=== PATIENT | female | born 1935 | race Caucasian/White ===

== ENCOUNTER → 2018-01-30 | Outpatient (CLI) | payer OTHER ==
[~2018-01-30] MED LIST: BENTYL; Bactrim Ds Tab1 EACH PO; CALCIUM; CEPH500 PO; CRUTCH4 USE; CYAN1000I IM; DICL.1SO OD; ERGO400 PO; FLUO.05TC TOP; FURO20 PO; IBUP400 PO; LEVSOD88 PO; Lasix40 MG PO; METO5 PO; MULVITB PO; OXYACE5T PO; PHENA200 PO; Pyridium100 MG PO; SEPTRA DS; TRAM50 PO; TRET.1TC TOP; [UNRECOGNIZED DRUG - OTHER]
== END | disposition home or self-care (01) ==
LOC: LAB SHORT 09:45 → OLS 09:45 → LAB FUT 01-29 16:30
DX: R19.4 Change in bowel habit (principal)
CPT/HCPCS: 87015; 87045; 87046; 87177; 87209; 87899

== ENCOUNTER 2019-03-04 11:55 | Inpatient (IN) | payer OTHER ==
[~2019-03-04] VITALS: Ht 165.1 cm; Wt 68.0 kg
[~2019-03-04 11:55] MED LIST changes: -LEVSOD88 PO
[2019-03-04 15:46] LABS: BASOPHILS ABSOLUTE AUTO 0.03 K/mm3 (0.00-0.23); BASOPHILS PERCENT AUTO 0 % (0-2); EOSINOPHILS ABSOLUTE AUTO 0.06 K/mm3 (0.00-0.68); EOSINOPHILS PERCENT AUTO 1 % (0-6); Hematocrit 40.2 % (33.0-51.0); IMMATURE GRAN ABSOLUTE AUTO 0.07 K/mm3 (0.00-0.10); IMMATURE GRAN PERCENT AUTO 1 % (0-1); LYMPHOCYTES ABSOLUTE AUTO 1.12 K/mm3 (0.84-5.20); LYMPHOCYTES PERCENT AUTO 10 % (21-46); MONOCYTES ABSOLUTE AUTO 0.55 K/mm3 (0.16-1.47); MONOCYTES PERCENT AUTO 5 % (4-13); Mean Corpuscular HGB 30.7 pg (26.0-34.0); Mean Corpuscular HGB Conc 32.3 g/dL (31.5-36.5); Mean Corpuscular Volume 95 fL (80-100); Mean Platelet Volume 10.2 fL (9.1-12.4); NEUTROPHILS PERCENT AUTO 85 % (41-73); Platelet Count 199 K/mm3 (150-400); RDW Coefficient Variation 12.2 % (11.7-14.2); RDW Standard Deviation 42.4 fL (35.1-46.3); Red Blood Cell Count 4.23 M/mm3 (3.80-5.20); White Blood Cell Count 11.83 K/mm3 (4.00-11.30)
[2019-03-04 16:06] LABS: Alanine Aminotransfer (ALT/SGP 31 U/L (12-78); Albumin/Globulin Ratio 1.2 (0.8-1.8); Alk Phos 140 U/L (50-136); Anion Gap 5 mmol/L (6-16); Aspartate Aminotrans (AST/SGOT 32 U/L (12-37); Bilirubin, Total 0.7 mg/dL (0.1-1.0); Blood Urea Nitrogen 10 mg/dL (8-24); CO2, Blood 29 mmol/L (21-32); Chloride, Blood 108 mmol/L (98-108); Creatinine, Blood 0.67 mg/dL (0.40-1.00); Globulin, Blood 3.4 g/dL (2.2-4.0); Glomerular Filtration Rate >60 (60-); Glucose, Blood 102 mg/dL (70-99); Potassium, Blood 4.3 mmol/L (3.5-5.5); Sodium, Blood 142 mmol/L (136-145); Total Protein, Blood 7.4 g/dL (6.4-8.2)
[2019-03-04] MEDS ORDERED: THYROID PO (16:13)
[2019-03-04 16:26] LABS: Source, Urine Catheter
[2019-03-04 16:31] LABS: Bilirubin, Urine Neg (Neg); Blood, Urine Neg (Neg); Glucose Qualitative, Urine Neg (Neg); Ketones, Urine 2+ (Neg); Leukocyte Esterase, Urine 1+ (Neg); Nitrite, Urine Pos (Neg); Protein, Urine Neg (Neg); Urobilinogen, Urine NORM (Normal)
[2019-03-04 16:53] LABS: Appearance, Urine Clear (Clear); Color, Urine Pale Yellow (P-Yellow)
[2019-03-04 16:58] LABS: Bacteria Many /hpf; Red Blood Cells, Urine 0-2 /hpf (0-2); Squamous Epithelial Cells Not Seen /hpf (Few)
--- NOTE | 2019-03-04 19:44 | NUR ---
SHIFT SUMMARY PT A&OX4, VSS, MAUREEN PO, REPORT GIVEN TO SUSANNA PARIKH.
--- NOTE | 2019-03-05 07:30 | NUR ---
SHIFT SUMMARY PT RESTED WELL THIS AM. AAOX4/NPO. DISCOMFORT CONTROLLED WITH 50mcg FENTANYL X3. NO NAUSEA/EMESIS. PT REPORTING HX FALL X3 WEEKS AGO TO LEFT SIDE WITH RESIDUAL PAIN/SWELLING/REDNESS TO LEFT CALF/FOOT AREA. PCP WAS NOTIFIED OUTPATIENT BUT NO FOLLOW UP WAS PERFORMED PER PT. CLAIM REVIEW MEDICAL DIRECTOR HOSPITALIST NOTIFIED AND ORDERS TO FOLLOW THIS AM WITH ATTENDING PHYSICIAN WAS GIVEN. SALTER IN PLACE WITH MODERATE AMOUNTS OF YELLOW DRAINAGE OUT. PT RESTING AT THIS TIME, REPORT TO DAY SHIFT RN. CALL LIGHT WITHIN PT'S REACH, RODNEY.
--- NOTE | 2019-03-05 11:50 | NUR ---
PT TO DAY SURGERY VIA HOSPITAL BED
--- NOTE | 2019-03-05 12:26 | NUR ---
Kenneth Paws warming gown applied. History, Chart, Medications and Allergies reviewed before start of procedure.Lungs clear T/O to Auscultation. Music therapy session facilitated. I provided soft acoustic guitar music for augmentation of well being, relaxation, leisure or non-pharmaceutical pain or stress alleviation. Patient and or family unit responded favorably to the intervention showing signs of improvement in emotional orientation or bodily disposition.Patient confirms NPO status and agrees with scheduled surgery. ALL BELONINGS LEFT IN ROOM.
--- NOTE | 2019-03-05 12:27 | NUR ---
PT SENSITIVE TO PAIN. PLACED PAS AND LILA HOSE ON BED. DID NOT WIPE WITH CHLORAHEXIDINE. DRAINED SALTER PRIOR TO TRANSFER TO OR.
--- NOTE | 2019-03-05 13:05 | NUR ---
03/05/19 1305 Pascale Morris PT ENTERED OR WITH SALTER IN PLACE.
--- NOTE | 2019-03-05 16:29 | NUR ---
PT WAKES AND C/O FEELING "SICK" WHEN ASKED WHERE SHE STATES HER STOMACH MEDICATED WITH ZOFRAN ALSO C/O RIGHT EYE PAIN , BEING COLD, BEING THIRSTY REQUESTING WATER RIGHT EYES WAS FLUSHED WITH SALINE I DID NOT SEE AND ABNORMALITY NO REDNESS OR SWELLING NOTED. MOIST MOUTH SWAB, WARM BLANKETS FOR COMFORT LAYS QUIETLY WITH EYES CLOSED RESP E/U
--- NOTE | 2019-03-05 17:05 | NUR ---
POST OP PT ARRIVED POST OP, DROWSY. C/O R EYE PAIN BUT DOESN'T SHOW ANY SIGNS OF R HIP PAIN. SANDER CHAMBERS AND EPI WITH OPSITE. CDI.
--- NOTE | 2019-03-05 20:33 | NUR ---
PT ADMITTED FROM ED FOR A R PUBIC RAMUS FX R/T GROUND LEVEL FALL. PT REPORTS FALLING ONTO LEFT SIDE. HEMATOMA ON LEFT ELBOW. PT A&O X4. VSS AT THIS TIME. PT ORIENTED TO ROOM AND INSTRUCTED ON HOW TO USE CALL LIGHT.
[2019-03-06 05:21] LABS: BASOPHILS PERCENT AUTO 0 % (0-2); EOSINOPHILS PERCENT AUTO 0 % (0-6); Hematocrit 27.5 % (33.0-51.0); Hemoglobin 9.2 g/dL (11.5-16.0); IMMATURE GRAN ABSOLUTE AUTO 0.05 K/mm3 (0.00-0.10); IMMATURE GRAN PERCENT AUTO 1 % (0-1); LYMPHOCYTES ABSOLUTE AUTO 0.61 K/mm3 (0.84-5.20); LYMPHOCYTES PERCENT AUTO 6 % (21-46); MONOCYTES ABSOLUTE AUTO 0.58 K/mm3 (0.16-1.47); MONOCYTES PERCENT AUTO 6 % (4-13); Mean Corpuscular HGB 31.1 pg (26.0-34.0); Mean Corpuscular HGB Conc 33.5 g/dL (31.5-36.5); Mean Corpuscular Volume 93 fL (80-100); Mean Platelet Volume 9.4 fL (9.1-12.4); NEUTROPHILS ABSOLUTE AUTO 8.35 K/mm3 (1.96-9.15); NEUTROPHILS PERCENT AUTO 87 % (41-73); Platelet Count 171 K/mm3 (150-400); RDW Standard Deviation 40.7 fL (35.1-46.3); Red Blood Cell Count 2.96 M/mm3 (3.80-5.20); White Blood Cell Count 9.59 K/mm3 (4.00-11.30)
[2019-03-06 05:47] LABS: Anion Gap 5 mmol/L (6-16); Blood Urea Nitrogen 14 mg/dL (8-24); Bun/Creatinine Ratio 18.8 (12.0-20.0); CO2, Blood 26 mmol/L (21-32); Calcium, Blood 7.8 mg/dL (8.5-10.1); Chloride, Blood 108 mmol/L (98-108); Creatinine, Blood 0.74 mg/dL (0.40-1.00); Glomerular Filtration Rate >60 (60-); Glucose, Blood 186 mg/dL (70-99); Potassium, Blood 4.3 mmol/L (3.5-5.5); Sodium, Blood 139 mmol/L (136-145)
--- NOTE | 2019-03-06 08:32 | NUR ---
SHIFT SUMMARY: PT POD #1 FOR RT GERMAINE. AQUACEL AND POLAR PACK IN PLACE. PT DENYING PAIN T/O SHIFT. GIVEN SCHED TORADOL AND TYLENOL. PT GIVEN EYE PATCH FOR C/O OF RIGHT EYE PAIN. EYEPATCH INEFFECTIVE FOR PT. GIVEN PRN EYEDROPS WHICH PT REPORTS TO BE HELPING. PT NOT COMPLAINING OF EYE PAIN THIS MORNING. LLE REMAINS PAINFUL WHEN TOUCHED. 1+ EDEMA. PT HAS NOT BEEN OUT OF BED SINCE SURGERY. WILL WORK WITH PHYSICAL THERAPY TODAY.
--- NOTE | 2019-03-06 19:43 | NUR ---
SHIFT SUMMARY PT HAS DONE VERY WELL TODAY. SAT UP IN CHAIR FOR MOST OF DAY. TYLENOL ONLY FOR PAIN. EDEMA DECREASED SIGNIFICANTLY IN LLE.
[2019-03-07 04:12] LABS: Hematocrit 24.4 % (33.0-51.0); Mean Corpuscular HGB 30.3 pg (26.0-34.0); Mean Corpuscular HGB Conc 32.8 g/dL (31.5-36.5); Mean Corpuscular Volume 92 fL (80-100); Mean Platelet Volume 9.5 fL (9.1-12.4); Platelet Count 155 K/mm3 (150-400); RDW Coefficient Variation 12.4 % (11.7-14.2); RDW Standard Deviation 41.5 fL (35.1-46.3); Red Blood Cell Count 2.64 M/mm3 (3.80-5.20); White Blood Cell Count 7.24 K/mm3 (4.00-11.30)
[2019-03-07 04:31] LABS: Anion Gap 4 mmol/L (6-16); Blood Urea Nitrogen 16 mg/dL (8-24); Bun/Creatinine Ratio 22.5 (12.0-20.0); CO2, Blood 27 mmol/L (21-32); Calcium, Blood 7.7 mg/dL (8.5-10.1); Chloride, Blood 112 mmol/L (98-108); Creatinine, Blood 0.71 mg/dL (0.40-1.00); Glomerular Filtration Rate >60 (60-); Glucose, Blood 150 mg/dL (70-99); Sodium, Blood 143 mmol/L (136-145)
--- NOTE | 2019-03-07 06:35 | NUR ---
POD 2 S/P R HIP REPAIR. PT VSS T/O NIGHT. PAIN MGD W/TYLENOL W/REP RELIEF. DRESSINGS CDI. PT UP OOB W/FWW+ASSIST. PT MAUREEN REG PO, NO C/O N/V. SALTER CATH D/C THIS AM. PT USING CALL LIGHT FOR ASSISTANCE, WILL CONT TO MONITOR UNTIL REP GIVEN TO ONCOMING RN.
--- NOTE | 2019-03-07 14:54 | NUR ---
DISCHARGE REPORT CALLED TO [facility]. PAIN WELL CONTROLLED, WORKING WELL WITH THERAPY, DRSG INTACT, VOIDING, EATING AND DRINKING.
== END 2019-03-07 14:59 | DRG 470 ==
LOC: ER 11:55 → SURS 16:26 → EDBEDREQ 16:32 → SURS 17:19
PROVIDERS: Emergency Medicine; Orthopaedic Surgery; Physician Assistant; ADMIT Internal Medicine
PROC: 0SR902A Replacement of Right Hip Joint with Metal on Polyethylene Synthetic Substitute, Uncemented, Open Approach (ICD-10-PCS; principal; 2019-03-05 12:30)
DX: S72.001A Fracture of unspecified part of neck of right femur, initial encounter for closed fracture (principal); N39.0 Urinary tract infection, site not specified; D62 Acute posthemorrhagic anemia; W19.XXXA Unspecified fall, initial encounter; Y92.512 Supermarket, store or market as the place of occurrence of the external cause; E03.9 Hypothyroidism, unspecified; M81.0 Age-related osteoporosis without current pathological fracture; Z88.0 Allergy status to penicillin
CPT/HCPCS: 36415; 51702; 71045; 72170; 73502; 80048; 80053; 81001; 83735; 85025; 85027; 86850; 86900; 86901; 87077; 87086; 87186; 88305; 88311; 93005; 93010; 93971; 96374-59; 96375-59; 97110; 97116; 97162; 97166; 97530; 97535; 99285-25; C1713; C1776; J0171; J0690; J0735; J1100; J1170; J1885; J2370; J2405; J2704; J2710; J2795; J3010; J7120

== ENCOUNTER 2020-07-14 08:09 | Outpatient (CLI) | payer MEDICARE ==
[~2020-07-14 08:09] MED LIST changes: +FUROSEMIDE40 MG PO; +THYROID PO
[2020-07-15 14:36] LABS: Anion Gap 4 mmol/L (6-16); Blood Urea Nitrogen 15 mg/dL (8-24); Bun/Creatinine Ratio 21.4 (12.0-20.0); CO2, Blood 28 mmol/L (21-32); Calcium, Blood 9.4 mg/dL (8.5-10.1); Chloride, Blood 110 mmol/L (98-108); Glomerular Filtration Rate >60 (60-); Glucose, Blood 116 mg/dL (70-99); Potassium, Blood 4.6 mmol/L (3.5-5.5); Sodium, Blood 142 mmol/L (136-145)
== END 2020-07-15 | disposition home or self-care (01) ==
LOC: LAB UCHC 08:09
PROVIDERS: Family Medicine
DX: E03.9 Hypothyroidism, unspecified (principal); J81.1 Chronic pulmonary edema
CPT/HCPCS: 80048; 84443

== ENCOUNTER → 2022-04-06 | Outpatient (CLI) | payer MEDICARE ==
[2022-04-06 18:19] LABS: BASOPHILS ABSOLUTE AUTO 0.03 K/mm3 (0.00-0.23); BASOPHILS PERCENT AUTO 1 % (0-2); EOSINOPHILS ABSOLUTE AUTO 0.22 K/mm3 (0.00-0.68); EOSINOPHILS PERCENT AUTO 4 % (0-6); Hematocrit 38.6 % (33.0-51.0); IMMATURE GRAN ABSOLUTE AUTO 0.02 K/mm3 (0.00-0.10); IMMATURE GRAN PERCENT AUTO 0 % (0-1); LYMPHOCYTES ABSOLUTE AUTO 1.64 K/mm3 (0.84-5.20); LYMPHOCYTES PERCENT AUTO 28 % (21-46); MONOCYTES ABSOLUTE AUTO 0.36 K/mm3 (0.16-1.47); MONOCYTES PERCENT AUTO 6 % (4-13); Mean Corpuscular HGB 31.2 pg (26.0-34.0); Mean Corpuscular HGB Conc 33.7 g/dL (31.5-36.5); Mean Corpuscular Volume 93 fL (80-100); Mean Platelet Volume 9.4 fL (9.1-12.4); NEUTROPHILS ABSOLUTE AUTO 3.51 K/mm3 (1.96-9.15); NEUTROPHILS PERCENT AUTO 61 % (41-73); Platelet Count 199 K/mm3 (150-400); RDW Coefficient Variation 13.2 % (11.7-14.2); RDW Standard Deviation 44.2 fL (35.1-46.3); Red Blood Cell Count 4.17 M/mm3 (3.80-5.20); White Blood Cell Count 5.78 K/mm3 (4.00-11.30)
[2022-04-06 18:31] LABS: Albumin, Blood 3.6 g/dL (3.4-5.0); Albumin/Globulin Ratio 1.1 (0.8-1.8); Bilirubin, Total 0.4 mg/dL (0.1-1.0); Bun/Creatinine Ratio 20.3 (12.0-20.0); Calcium, Blood 8.8 mg/dL (8.5-10.1); Creatinine, Blood 0.79 mg/dL (0.40-1.00); Globulin, Blood 3.2 g/dL (2.2-4.0); Total Protein, Blood 6.8 g/dL (6.4-8.2)
== END ==
LOC: LAB 18:15 → LAB SHORT 18:15
PROVIDERS: Physician Assistant
DX: R60.9 Edema, unspecified (principal)
CPT/HCPCS: 80053; 85025

== ENCOUNTER 2022-10-20 15:17 | Emergency (ER) | payer MEDICARE ==
[~2022-10-20] VITALS: Ht 165.1 cm; Wt 68.0 kg
[2022-10-20 17:43] LABS: BASOPHILS ABSOLUTE AUTO 0.03 K/mm3 (0.00-0.23); BASOPHILS PERCENT AUTO 1 % (0-2); EOSINOPHILS ABSOLUTE AUTO 0.16 K/mm3 (0.00-0.68); EOSINOPHILS PERCENT AUTO 3 % (0-6); Hematocrit 40.4 % (33.0-51.0); Hemoglobin 13.6 g/dL (11.5-16.0); IMMATURE GRAN ABSOLUTE AUTO 0.01 K/mm3 (0.00-0.10); IMMATURE GRAN PERCENT AUTO 0 % (0-1); LYMPHOCYTES ABSOLUTE AUTO 1.22 K/mm3 (0.84-5.20); LYMPHOCYTES PERCENT AUTO 22 % (21-46); MONOCYTES ABSOLUTE AUTO 0.31 K/mm3 (0.16-1.47); MONOCYTES PERCENT AUTO 6 % (4-13); Mean Corpuscular HGB Conc 33.7 g/dL (31.5-36.5); Mean Corpuscular Volume 92 fL (80-100); Mean Platelet Volume 9.2 fL (9.1-12.4); NEUTROPHILS ABSOLUTE AUTO 3.73 K/mm3 (1.96-9.15); NEUTROPHILS PERCENT AUTO 68 % (41-73); Platelet Count 198 K/mm3 (150-400); RDW Coefficient Variation 12.7 % (11.7-14.2); RDW Standard Deviation 43.1 fL (35.1-46.3); Red Blood Cell Count 4.39 M/mm3 (3.80-5.20); White Blood Cell Count 5.46 K/mm3 (4.00-11.30)
[2022-10-20 18:09] LABS: Albumin/Globulin Ratio 1.2 (0.8-1.8); Bilirubin, Total 0.5 mg/dL (0.1-1.0); Bun/Creatinine Ratio 15.9 (12.0-20.0); Calcium, Blood 9.5 mg/dL (8.5-10.1); Creatinine, Blood 0.69 mg/dL (0.40-1.00); Globulin, Blood 3.3 g/dL (2.2-4.0); Potassium, Blood 4.1 mmol/L (3.5-5.5); Total Protein, Blood 7.3 g/dL (6.4-8.2)
[2022-10-20] MEDS ORDERED: Amlodipine Bes2.5 MG PO (20:31)
== END 2022-10-20 21:11 | disposition home or self-care (01) ==
LOC: ER 15:17
PROVIDERS: Physician Assistant
DX: I48.91 Unspecified atrial fibrillation (principal); I10 Essential (primary) hypertension; E03.9 Hypothyroidism, unspecified; Z88.0 Allergy status to penicillin; Z88.5 Allergy status to narcotic agent; Z79.899 Other long term (current) drug therapy
CPT/HCPCS: 36415; 80053; 83690; 85025; 93005; 93010; 99285-25; A9270

== ENCOUNTER 2023-01-11 09:27 | Emergency (ER) | payer MEDICARE ==
[~2023-01-11] VITALS: Ht 165.1 cm; Wt 67.1 kg
[~2023-01-11 09:27] MED LIST changes: +Amlodipine Bes2.5 MG PO
[2023-01-11 11:00] VITALS: BP 158/54
[2023-01-11] MEDS ORDERED: TIZANIDINE HCL2 MG PO (11:02)
== END 2023-01-11 11:07 | disposition home or self-care (01) ==
LOC: ER 09:27
DX: R07.89 Other chest pain (principal); W18.30XA Fall on same level, unspecified, initial encounter; Z88.0 Allergy status to penicillin; Z88.5 Allergy status to narcotic agent; Z79.899 Other long term (current) drug therapy; E03.9 Hypothyroidism, unspecified; I48.91 Unspecified atrial fibrillation
CPT/HCPCS: 71101; 99283-25; A9270